=== PATIENT | female | born 1990 | race Two or more races ===

== ENCOUNTER 2022-02-02 09:57 | Emergency (ER) | payer MEDICAID, OTHER ==
[~2022-02-02] VITALS: Ht 152.4 cm; Wt 53.1 kg
[2022-02-02] MEDS ORDERED: EPINEPHrine HCL 1 MG/1 ML AMP IM ONE (10:30)
[2022-02-02] MEDS ORDERED: methylPREDNISolone SOD SUCC 125 MG/2 ML VL IM ONE (10:30)
[2022-02-02] MEDS ORDERED: EPIN0.3I24 IJ (10:57)
[2022-02-02] MEDS ORDERED: PRED20TA2 PO (11:15)
[2022-02-02 11:25] VITALS: BP 117/63
== END 2022-02-02 11:43 | disposition home or self-care (01) ==
LOC: ER 09:57
DX: T78.40XA Allergy, unspecified, initial encounter (principal); L50.9 Urticaria, unspecified; Z79.899 Other long term (current) drug therapy; Y92.89 Other specified places as the place of occurrence of the external cause
CPT/HCPCS: 96372; 99284; J0171; J2930